=== PATIENT | female | born 1965 | race Caucasian/White ===

== ENCOUNTER 2017-05-30 19:04 | Inpatient (IN) | payer MEDICAID, OTHER ==
[~2017-05-30] VITALS: Ht 170.2 cm; Wt 71.0 kg
[2017-05-30] MEDS ORDERED: DEXAMETHASONE 4 MG/ML, 1ML IVPush ONE (19:30)
[2017-05-30] MEDS ORDERED: ONDANSETRON 2MG/ML, 2ML IVPush ONE (19:30)
[2017-05-30] MEDS ORDERED: SODIUM CHLORIDE 0.9% 1,000ML IVBOLUS ONE (19:30)
[2017-05-30] MEDS ORDERED: AMPICILLIN/SULBACTAM 3 GM in SODIUM CHLORIDE 0.9% 100 ML IV ONE (19:30)
[2017-05-30] MEDS ORDERED: morphine SULFATE 10 MG/ML, 1ML IVPush ONE (19:30)
[2017-05-30] MEDS ORDERED: SODIUM CHLORIDE FLUSH 10ML SYR IVF ONE (19:30)
[2017-05-30 19:48] LABS: BLOOD UREA NITROGEN 7 mg/dL (7-18)
[2017-05-30] MEDS ORDERED: ONDANSETRON 2MG/ML, 2ML ONE (19:48)
[2017-05-30] MEDS ORDERED: DEXAMETHASONE 4 MG/ML, 5ML ONE (19:48)
[2017-05-30] MEDS ORDERED: MORPHINE SULFATE 4 MG/ML, 1ML ONE (19:48)
[2017-05-30 20:02] LABS: HEMATOCRIT 47.5 % (34.6-47.8); HEMOGLOBIN 15.2 g/dL (11.7-16.4); WHITE BLOOD COUNT 22.7 x10^3/uL (3.4-10)
[2017-05-30 20:04] LABS: DIFF TOTAL CELLS COUNTED 100 CELL DIFF
[2017-05-30 20:05] LABS: VERIFY COUNTS? YES
[2017-05-30 20:07] LABS: GIANT PLATELETS 1+; LARGE PLATELETS 1+
[2017-05-30] MEDS ORDERED: OMNIPAQUE 350 MG/ML, 100ML BOTTLE ONE (20:18)
[2017-05-30] MEDS ORDERED: SODIUM CHLORIDE 0.9% 1,000ML IVBOLUS PRN (21:00)
[2017-05-30] MEDS ORDERED: POLYETHYLENE GLYCOL 17 GM PACKET PO PRN (21:30)
[2017-05-30] MEDS ORDERED: DOCUSATE 100 MG CAPSULE PO PRN (21:30)
[2017-05-30] MEDS ORDERED: ACETAMINOPHEN 325 MG TABLET PO PRN (21:30)
[2017-05-30] MEDS ORDERED: GUAIFENESIN/DM 200-20MG, 10ML UDC PO PRN (21:30)
[2017-05-30] MEDS ORDERED: ONDANSETRON 2MG/ML, 2ML IVPush PRN (21:30)
[2017-05-30] MEDS ORDERED: morphine SULFATE 10 MG/ML, 1ML IVPush PRN (21:30)
[2017-05-30] MEDS ORDERED: HYDROcodone/APAP 5/325 TABLET PO PRN (21:30)
[2017-05-30 22:10] VITALS: BP 125/85
[2017-05-30] MEDS: NS + 20MEQ KCL 1,000 ML IV SCH (23:29)
[2017-05-30] MEDS: NICOTINE 14MG/24 HR PATCH.TD24 TD SCH (23:32)
[2017-05-30] MEDS: ENOXAPARIN 40 MG/0.4 ML SQ SCH (23:32)
[2017-05-30] MEDS: AMPICILLIN/SULBACTAM 3 GM in SODIUM CHLORIDE 0.9% 100 ML IV SCH (23:33)
[2017-05-31] MEDS: AMPICILLIN/SULBACTAM 3 GM in SODIUM CHLORIDE 0.9% 100 ML IV SCH ×4 (01:58→20:18)
[2017-05-31 02:15] VITALS: BP 108/60
[2017-05-31 05:06] LABS: BLOOD UREA NITROGEN 7 mg/dL (7-18)
[2017-05-31 05:51] LABS: HEMATOCRIT 41.4 % (34.6-47.8); HEMOGLOBIN 13.3 g/dL (11.7-16.4); WHITE BLOOD COUNT 21.6 x10^3/uL (3.4-10)
[2017-05-31 07:51] VITALS: BP 137/77
[2017-05-31] MEDS: NS + 20MEQ KCL 1,000 ML IV SCH (10:45)
[2017-05-31 12:59] VITALS: BP 137/87
[2017-05-31] MEDS: SODIUM CHLORIDE 0.9% 1,000 ML IV SCH (17:14)
[2017-05-31 18:44] VITALS: BP 136/79
[2017-05-31] MEDS: NICOTINE 14MG/24 HR PATCH.TD24 TD SCH (20:18)
[2017-05-31] MEDS: ENOXAPARIN 40 MG/0.4 ML SQ SCH (20:18)
[2017-06-01 01:44] VITALS: BP 151/90
[2017-06-01] MEDS: AMPICILLIN/SULBACTAM 3 GM in SODIUM CHLORIDE 0.9% 100 ML IV SCH ×3 (02:13→14:00)
[2017-06-01] MEDS: SODIUM CHLORIDE 0.9% 1,000 ML IV SCH (02:16)
[2017-06-01 05:16] LABS: HEMATOCRIT 40.6 % (34.6-47.8); HEMOGLOBIN 13.1 g/dL (11.7-16.4); WHITE BLOOD COUNT 16.3 x10^3/uL (3.4-10)
[2017-06-01 07:36] VITALS: BP 149/94
[2017-06-01] MEDS ORDERED: LACT1TAB13 PO (14:55)
[2017-06-01] MEDS ORDERED: AMOX1TAB64 PO (14:55)
== END 2017-06-01 15:10 | disposition home or self-care (01) | DRG 872 ==
LOC: SUATTDRO 21:20 → ED 21:50 → EDIP 22:00 → 3NE 22:27
PROVIDERS: ADMIT Family Medicine; ATTEND Family Medicine
DX: A41.9 Sepsis, unspecified organism (principal); E44.0 Moderate protein-calorie malnutrition; J36 Peritonsillar abscess; F17.200 Nicotine dependence, unspecified, uncomplicated; J44.9 Chronic obstructive pulmonary disease, unspecified; R13.10 Dysphagia, unspecified; Z66 Do not resuscitate; Z83.3 Family history of diabetes mellitus; Z80.9 Family history of malignant neoplasm, unspecified; Z68.24 Body mass index [BMI] 24.0-24.9, adult
CPT/HCPCS: 36415; 70491; 80048; 82040; 83605; 84145; 85025; 87040; 87081; 87147; 87880; 93005; 96365; 96375; J0295; J1100; J2405; J3480; Q9967; J2270; J7030

== ENCOUNTER 2018-08-23 03:58 | Emergency (ER) | payer SELFPAY ==
[~2018-08-23] VITALS: Ht 170.2 cm; Wt 75.0 kg
[~2018-08-23 03:58] MED LIST: AMOX1TAB64 PO; LACT1TAB13 PO
[2018-08-23] MEDS ORDERED: ALBUTEROL/IPRATROPIUM 2.5MG/0.5MG, 3 ML NPPB STA (04:39)
[2018-08-23] MEDS ORDERED: KETOROLAC 30 MG/1 ML ONE (04:51)
[2018-08-23] MEDS ORDERED: ALBUTEROL/IPRATROPIUM 2.5MG/0.5MG, 3 ML ONE (04:56)
[2018-08-23] MEDS ORDERED: KETOROLAC 30 MG/1 ML IM ONE (05:00)
[2018-08-23 05:22] LABS: BASOPHILS % (AUTO) 1 % (0-1); EOSINOPHILS # (AUTO) 0.08 x10^3/uL (0-0.4); EOSINOPHILS % (AUTO) 1 % (1-7); LYMPHOCYTES # (AUTO) 2.36 x10^3/uL (1-3.4); LYMPHOCYTES % (AUTO) 22 % (22-44); MD NO; MEAN CORPUSCULAR HEMOGLOBIN 28.1 pg (27.0-34.8); MEAN CORPUSCULAR HGB CONC 32.4 g/dL (32.4-35.8); MEAN CORPUSCULAR VOLUME 86.9 fL (80-100); MEAN PLATELET VOLUME 10.6 fL (7.4-10.4); MONOCYTES # (AUTO) 0.58 x10^3/uL (0.2-0.8); MONOCYTES % (AUTO) 5 % (2-9); NEUTROPHILS # (AUTO) 7.76 x10^3/uL (1.8-6.8); NEUTROPHILS % (AUTO) 71 % (42-75); PLATELET COUNT 305 x10^3/uL (130-400); RED BLOOD COUNT 4.73 x10^6/uL (3.82-5.3); RED CELL DISTRIBUTION WIDTH 15.5 % (9.6-15.2)
[2018-08-23 05:31] LABS: ALBUMIN 3.1 g/dL (3.4-5.0); ANION GAP 7 mmol/L (5-15); CALCIUM 8.4 mg/dL (8.5-10.1); CHLORIDE 111 mmol/L (98-107)
[2018-08-23 05:35] LABS: ALANINE AMINOTRANSFERASE 36 U/L (12-78); ALKALINE PHOSPHATASE 112 U/L (45-117); BILIRUBIN,TOTAL 0.4 mg/dL (0.2-1.0); CREATININE 0.79 mg/dL (0.55-1.02)
[2018-08-23 08:10] LABS: MICROSCOPIC INDICATED
[2018-08-23 08:18] LABS: CULTURE INDICATED? YES
[2018-08-23 08:30] VITALS: BP 165/85
== END 2018-08-23 08:33 | disposition home or self-care (01) ==
LOC: ED 04:29
DX: M94.0 Chondrocostal junction syndrome [Tietze] (principal); I10 Essential (primary) hypertension; J44.9 Chronic obstructive pulmonary disease, unspecified; Z90.49 Acquired absence of other specified parts of digestive tract; R07.89 Other chest pain
CPT/HCPCS: 36415; 71045; 71046; 76700; 80053; 81001; 83690; 85025; 87086; 93005; 94640; 96372; 99284; J1885; J7620